=== PATIENT | female | born 1990 | race Caucasian/White ===

== ENCOUNTER 2016-11-27 23:14 | Emergency (ER) | payer OTHER ==
[2016-11-27 23:33] VITALS: BP 124/78
[2016-11-28] MEDS ORDERED: OXYCODONE HCL IR 5 MG TABLET PO ONE (00:14)
[2016-11-28] MEDS ORDERED: IBUPROFEN 600 MG TABLET PO ONE (00:14)
[2016-11-28] MEDS ORDERED: ACETAMINOPHEN 325 MG TABLET PO ONE (00:14)
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
[2016-11-28] MEDS ORDERED: DIPH/PERTUSS(ACELL)/TETANUS VAC/PF 0.5 ML SYR (>=10YO) IM ONE (00:50)
== END 2016-11-28 02:13 | disposition home or self-care (01) ==
LOC: EDBD 23:14 → ER 23:14
DX: S05.02XA Injury of conjunctiva and corneal abrasion without foreign body, left eye, initial encounter (principal); S40.812A Abrasion of left upper arm, initial encounter; S00.81XA Abrasion of other part of head, initial encounter; S20.412A Abrasion of left back wall of thorax, initial encounter; M79.1 Myalgia; R07.81 Pleurodynia; V89.2XXA Person injured in unspecified motor-vehicle accident, traffic, initial encounter; Z23 Encounter for immunization
CPT/HCPCS: 71010; 72170; 90471; 90715; 99284